=== PATIENT | male | born 1980 | race Caucasian/White ===

== ENCOUNTER 2018-01-04 01:55 | Inpatient (IN) | payer MEDICARE ==
[~2018-01-04] VITALS: Ht 175.3 cm; Wt 80.1 kg
[2018-01-04] MEDS ORDERED: LANTUS INSULIN10 ML SC (02:05)
[2018-01-04 02:51] LABS: BASOPHILS 0.2 % (0-2); EOSINOPHILS 0.8 % (0-7); HEMATOCRIT 28.6 % (42.0-54.0); HEMOGLOBIN 9.1 g/dL (13.5-17.5); IMMATURE GRANULOCYTES 0.4 % (0-5); MCH 29.9 pg (26.0-34.0); MCHC 31.8 g/dL (31.0-37.0); MCV 94.1 fL (80.0-100.0); MEAN PLATELET VOLUME 11.1 fL (7.4-10.4); MONOCYTES 6.6 % (2-11); PLATELET COUNT 237 10x3/uL (130-400); RBC 3.04 10x6/uL (4.20-6.10); WBC 13.2 10x3/uL (4.8-10.8)
[2018-01-04 03:07] LABS: ALBUMIN 2.7 g/dL (3.4-5.0); ANION GAP 20.7 mmol/L (8-16); CALCIUM 8.3 mg/dL (8.5-10.1); CARBON DIOXIDE 22.1 mmol/L (21.0-32.0); CREATININE - SERUM 7.1 mg/dL (0.6-1.3); POTASSIUM - SERUM 3.8 mmol/L (3.5-5.1); PROTEIN - SERUM 7.2 g/dL (6.4-8.2)
[2018-01-04 03:16] LABS: MAGNESIUM - SERUM 1.9 mg/dL (1.8-2.4)
[2018-01-04 03:45] VITALS: BP 170/80; BMI 28.8
[2018-01-04] MEDS ORDERED: TRAZODONE HCL150 MG PO (05:20)
[2018-01-04] MEDS ORDERED: NORCO 7.5/325 T1 TA1 PO (05:20)
[2018-01-04] MEDS ORDERED: COREG25 MG PO (05:21)
[2018-01-04] MEDS ORDERED: ZOFRAN8 MG PO (05:21)
[2018-01-04] MEDS ORDERED: PROZAC10 MG PO (05:22)
[2018-01-04] MEDS ORDERED: LONITEN10 MG PO (05:22)
[2018-01-04 08:14] LABS: BILIRUBIN - DIRECT 1.65 mg/dL (0.00-0.30)
[2018-01-04 08:19] LABS: APTT 36.8 SECONDS (22.8-39.4); INR 1.28 (0.85-1.17); PROTIME 15.6 SECONDS (11.6-15.0)
[2018-01-04 09:03] VITALS: BP 112/62
[2018-01-04 13:10] VITALS: Ht 175.3 cm; Wt 80.1 kg
[2018-01-04 16:14] VITALS: BP 91/64
[2018-01-04 20:00] VITALS: BP 130/94
[2018-01-05] VITALS (7 sets, daily range): BP systolic 115–159; BP diastolic 44–66
[2018-01-05 05:30] LABS: BASOPHILS 0.1 % (0-2); HEMATOCRIT 26.5 % (42.0-54.0); HEMOGLOBIN 8.4 g/dL (13.5-17.5); IMMATURE GRANULOCYTES 0.2 % (0-5); LYMPHOCYTES 5.1 % (15-50); MCH 29.6 pg (26.0-34.0); MCHC 31.7 g/dL (31.0-37.0); MCV 93.3 fL (80.0-100.0); MONOCYTES 7.6 % (2-11); PLATELET COUNT 203 10x3/uL (130-400); RBC 2.84 10x6/uL (4.20-6.10); RDW 14.1 % (11.5-14.5)
[2018-01-05 05:34] LABS: WBC 9.1 10x3/uL (4.8-10.8)
[2018-01-05 05:36] LABS: ALBUMIN 2.2 g/dL (3.4-5.0); BILIRUBIN - DIRECT 1.89 mg/dL (0.00-0.30); BILIRUBIN - INDIRECT 0.42 mg/dL (0.00-1.00); BILIRUBIN - TOTAL 2.31 mg/dL (0.2-1.3); CALCIUM 8.5 mg/dL (8.5-10.1); CARBON DIOXIDE 25.5 mmol/L (21.0-32.0); CREATININE - SERUM 5.6 mg/dL (0.6-1.3); PHOSPHOROUS 5.8 mg/dL (2.5-4.9); POTASSIUM - SERUM 3.5 mmol/L (3.5-5.1); PROTEIN - SERUM 6.4 g/dL (6.4-8.2)
[2018-01-05 10:21] LABS: HEPATITIS C ANTIBODY 0.1 (0.0-0.9)
[2018-01-06 00:49] VITALS: BP 104/44; BP 152/69
[2018-01-06 05:08] LABS: BASOPHILS 0.1 % (0-2); EOSINOPHILS 1.8 % (0-7); HEMATOCRIT 26.5 % (42.0-54.0); HEMOGLOBIN 8.5 g/dL (13.5-17.5); IMMATURE GRANULOCYTES 0.5 % (0-5); LYMPHOCYTES 7.1 % (15-50); MCH 29.4 pg (26.0-34.0); MCHC 32.1 g/dL (31.0-37.0); MCV 91.7 fL (80.0-100.0); MEAN PLATELET VOLUME 12.2 fL (7.4-10.4); NEUTROPHILS 84.5 % (40-80); PLATELET COUNT 216 10x3/uL (130-400); RBC 2.89 10x6/uL (4.20-6.10); RDW 14.2 % (11.5-14.5); WBC 8.7 10x3/uL (4.8-10.8)
[2018-01-06 05:17] VITALS: BP 156/52
[2018-01-06 05:35] LABS: ANION GAP 18.7 mmol/L (8-16); CALCIUM 8.4 mg/dL (8.5-10.1); CARBON DIOXIDE 23.9 mmol/L (21.0-32.0); CREATININE - SERUM 6.7 mg/dL (0.6-1.3); PHOSPHOROUS 7.1 mg/dL (2.5-4.9); POTASSIUM - SERUM 3.6 mmol/L (3.5-5.1)
[2018-01-06 09:11] VITALS: BP 160/44
[2018-01-06 12:35] VITALS: BP 113/71
[2018-01-06 14:29] VITALS: BP 197/59
[2018-01-06 20:00] VITALS: BP 175/48
[2018-01-07] VITALS: BP 151/95
[2018-01-07 04:00] VITALS: BP 149/38
[2018-01-07 05:37] LABS: BASOPHILS 0.1 % (0-2); EOSINOPHILS 0.1 % (0-7); HEMATOCRIT 30.2 % (42.0-54.0); HEMOGLOBIN 9.7 g/dL (13.5-17.5); IMMATURE GRANULOCYTES 0.6 % (0-5); LYMPHOCYTES 4.4 % (15-50); MCH 29.8 pg (26.0-34.0); MCHC 32.1 g/dL (31.0-37.0); MCV 92.6 fL (80.0-100.0); MEAN PLATELET VOLUME 11.3 fL (7.4-10.4); MONOCYTES 3.7 % (2-11); NEUTROPHILS 91.1 % (40-80); PLATELET COUNT 201 10x3/uL (130-400); RBC 3.26 10x6/uL (4.20-6.10); RDW 14.1 % (11.5-14.5)
[2018-01-07 05:38] LABS: WBC 13.2 10x3/uL (4.8-10.8)
[2018-01-07 06:28] LABS: ALBUMIN 2.2 g/dL (3.4-5.0); BILIRUBIN - DIRECT 2.38 mg/dL (0.00-0.30); BILIRUBIN - INDIRECT 0.42 mg/dL (0.00-1.00); BILIRUBIN - TOTAL 2.8 mg/dL (0.2-1.3); CALCIUM 8.3 mg/dL (8.5-10.1); CARBON DIOXIDE 18.6 mmol/L (21.0-32.0); CREATININE - SERUM 7.6 mg/dL (0.6-1.3); PHOSPHOROUS 8.8 mg/dL (2.5-4.9); PROTEIN - SERUM 6.6 g/dL (6.4-8.2)
[2018-01-07 06:31] LABS: POTASSIUM - SERUM 4.6 mmol/L (3.5-5.1)
[2018-01-07 08:06] VITALS: BP 101/59
[2018-01-07 12:09] VITALS: BP 155/38
== END 2018-01-07 15:22 | disposition home or self-care (01) | DRG 417 ==
LOC: D.ER 01:55 → D.M2 02:32
PROVIDERS: Family Medicine; Internal Medicine Gastroenterology; Internal Medicine Nephrology; Surgery
PROC: 0FC98ZZ Extirpation of Matter from Common Bile Duct, Via Natural or Artificial Opening Endoscopic (ICD-10-PCS; principal; 2018-01-05 12:30)
PROC: 0FT44ZZ Resection of Gallbladder, Percutaneous Endoscopic Approach (ICD-10-PCS; 2018-01-06)
DX: K80.42 Calculus of bile duct with acute cholecystitis without obstruction (principal); N18.6 End stage renal disease; I12.0 Hypertensive chronic kidney disease with stage 5 chronic kidney disease or end stage renal disease; R17 Unspecified jaundice; J90 Pleural effusion, not elsewhere classified; I16.0 Hypertensive urgency; Z99.2 Dependence on renal dialysis; E11.22 Type 2 diabetes mellitus with diabetic chronic kidney disease; D63.1 Anemia in chronic kidney disease; S90.421A Blister (nonthermal), right great toe, initial encounter; X58.XXXA Exposure to other specified factors, initial encounter